=== PATIENT | male | born 1985 | race Caucasian/White ===

== ENCOUNTER → 2019-04-17 | Outpatient (CLI) | payer OTHER, SELFPAY ==
[2019-04-17 09:57] LABS: Absolute Lymphocyte Count 1.38 X10^3/uL (0.83-4.51); Basophil# 0.06 X10^3/uL; Basophil% 1.4 % (0-1); Eosinophil# 0.12 X10^3/uL; Eosinophils% 2.9 % (0-5); Hematocrit 44.2 % (40-54); Hemoglobin 14.6 g/dL (13.0-16.5); Lymphocyte # 1.38 X10^3/ul (4.0); Mean Corpuscular Hgb 30.1 pg (27.0-32.0); Mean Corpuscular Volume 91.1 fL (80-94); Mean Platelet Vol. 11.6 fl (6.2-12.0); Monocyte# 0.62 X10^3/uL; Monocyte% 14.8 % (0-10); NRBC Flagged by Analyzer 0 % (0-5); Neutrophil # 1.99 X10^3/uL (2.7-7.7); Neutrophil % 47.7 % (47-70); Platelet Count 156 K/mm3 (150-450); RBC Distribution Width CV 13.1 % (11.6-14.6); RBC Distribution Width SD 44.7 fl (35.1-43.9); Red Blood Count 4.85 M/mm3 (4.6-6.2); White Blood Count 4.2 K/mm3 (4.4-11.0)
[2019-04-17 10:17] LABS: Vitamin D,25 Hydroxy 42.1 ng/mL (29.95-100.01)
[2019-04-17 10:21] LABS: ALB/GLOB Ratio 1.3 RATIO (0.9-2.4); AST(SGOT) 21 U/L (15-37); Alanine Aminotransfer ALT/SGPT 26 U/L (16-61); Albumin, Serum 4.1 g/dL (3.2-5.0); Alkaline Phosphatase 64 U/L (45-117); Anion Gap 6 (5-15); BUN 17 mg/dL (7-18); BUN/Creat Ratio 15.5 RATIO (10-20); Calcium,Total 8.7 mg/dL (8.5-10.1); Chloride 105 mmol/L (98-107); EST Glomerular Filtration Rate 82 mL/min (>60); Est Glom Filt Rate - Afr Amer 99 mL/min (>60); Globulin 3.1 g/dL (2.2-4.2); Glucose 95 mg/dL (74-106); Potassium 3.9 mmol/L (3.5-5.1); Protein, Total 7.2 g/dL (6.4-8.2); Sodium Level 140 mmol/L (136-145)
== END | disposition home or self-care (01) ==
LOC: MFPLAB 08:22
PROVIDERS: Family Provider Family Medicine; PCP Family Medicine; Referring Provider Family Medicine; Visit Provider Family Medicine
DX: F32.0 Major depressive disorder, single episode, mild (principal); F52.9 Unspecified sexual dysfunction not due to a substance or known physiological condition
CPT/HCPCS: 36415; 80053; 82306; 84403; 84443; 85025

== ENCOUNTER → 2020-05-18 15:17 | Outpatient (CLI) | payer OTHER, SELFPAY | LOC: MFPLAB 15:20 → LABSPEC 15:20 | PROVIDERS: PCP Family Medicine; Referring Provider Family Medicine; Visit Provider Nurse Practitioner Family | DX: R50.9 Fever, unspecified (principal) | CPT/HCPCS: 87633; 87635; U0003 ==

== ENCOUNTER 2020-07-14 09:00 | Outpatient (RCR) | payer OTHER, SELFPAY ==
--- NOTE | 2020-07-01 12:32 | HP.PTEVAL ---
Patient's Visit Information TORITO KWON is a 34 year old M referred to Physical Therapy by Dr. Marc Land MD with a diagnosis of BPV. Date of Evaluation: 07/01/20 Physical Therapist: Marc Ozuna DPT, OCS, CSCS - Visit Plan Frequency: 1x/Week Duration: 2-4 Weeks Plan: weekly x 2-4 for vestibular adaptation progression. VOR - Subjective @nd day back to exercise yesterday and was on TM running 2 miles. Lst night after the first mile got lightheaded and spinning dizzy. slowed down to walking then went down to knees then lied down. Help came and checked vitals. Saw eyes jumping when they sat him up and blood pressure dipped. Room was spinning still after recovering in back and got nauseous. Had some food and slowly got back up , was very pale and clammy but improving. Left via wheelchair and went home and lied down in bed and slowly got better. Feels low level lightheadedness this am, moving head would be worse. Nothing like previously. Sleep well last night. No bad spinning. 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 Will go to work but take is slow. Working out is hobby and wants to get back to that. - Objective Walks and trasnfers normal. Balance is good. Cervical aROM WFL. Vitals good at doctor office this am. - B hallpike bernardino. - roll test. Ocuomotor: nonystagmus with gaze or head shake. - ocular tilt. - skew eye deviation. Normal pursuit adn saccades and convergence. VOR horiz seated give 3/10 dizzy for 20 seconds after 30 seconds of performance. Vertical not as bad. 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 Rehabilitation Potential: Excellent - Anticipated Interventions Patient/Client Instruction: Educate patient on: Condition, Plan of Care For the Purpose of:: To increase tolerance to activity/condition/position Comment: adaptation/habituation. return to activity For the Purpose of:: To increase tolerance to activity/condition/position Thank you for the opportunity to evaluate your patient. For Medicare and Medicare HMO plans, please review the plan of care and approve it. It will need to be FAXED BACK to us at [phone] for Medicare purposes. For Medicare only, by signing this I certify the plan of care. Please let me know if there are questions or concerns regarding this plan of care. Physician Signature: Date:
--- NOTE | 2020-07-14 09:25 | HP.PTREVAL ---
Dr. Marc Land MD, It has been my pleasure to treat TORITO KWON over the last 3 visits for BPV. Please see the progress note below for an update on the physical therapy plan of care! Subjective: Ran and walked yesterday and did ex in between. Still gets dizzy for one second. Seeing improvements with exercises. Nothing else is causing dizzyness. Made it two miles on TM yesterday without an issue. Activities seem pretty normal. No falls. Objective/Function: - positional HD and roll. No MSQ psoitions cause dizzyness. VOR is normal with hrriz and vertical walking. Diagonal gives slight symptoms for 5-8 seconds walking. 10 burpees without a problem. Overall doing well and near back to normal. Feels comfortable continuing HEP and getting back to normal ex regimen slowly on his own vs more therapy. Plan Plan: Pt to call in two weeks for recheck or D/C if doing well. Goals Goal 1:: Abolish dizzyness with VOR Goal Time Frame: 2-4 Weeks Goal Progress: Progressing Goal 2:: Pt feel 100% back to normal with acitviites Goal Time Frame: 2-4 Weeks Goal Progress: 95 Goal 3:: Back to 2 mile jog on TM Goal Time Frame: 2-4 Weeks Goal Progress: Progressing Anticipated Interventions Patient/Client Instruction: Educate patient on: Condition, Plan of Care For the Purpose of:: To increase tolerance to activity/condition/position Comment: adaptation/habituation. return to activity For the Purpose of:: To increase tolerance to activity/condition/position Please do not hesitate to contact me at [phone] by phone or if you have questions or concerns regarding this new plan of care! Sincerely, Marc Ozuna, DPT, OCS, CSCS
--- NOTE | 2020-08-26 15:19 | HP.PT.NRP ---
TORITO KWON was seen in my office for initial evaluation on 07/01/20. The following Plan of Care was established for this patient: Initial Frequency: 1x/Week Initial Duration: 2-4 Weeks Patient/Client Instruction: Educate patient on: Condition, Plan of Care For the Purpose of:: To increase tolerance to activity/condition/position For the Purpose of:: To increase tolerance to activity/condition/position This patient was last seen in our office 07/14/20. Pertinent comments regarding their Physical therapy will appear below: Pt seen 3 visits of POC and was 95% better at last visit. He was to f/u 2 weeks after last session but did not call. I have seen him working out at and he says he is still doing well and does not need to return. I will discontinue at this time. At this point I will be discontinuing this patient from physical therapy. I would be happy to see this patient again in the future if found appropriate by the physician. Thank you! Marc Ozuna, DPT, OCS, CSCS
== END 2020-07-14 19:00 | disposition home or self-care (01) ==
LOC: PT 09:00
PROVIDERS: PCP Family Medicine; Referring Provider Family Medicine; Visit Provider Family Medicine
DX: H81.10 Benign paroxysmal vertigo, unspecified ear (principal)
CPT/HCPCS: 97110; 97162; 97530

== ENCOUNTER → 2022-10-31 | Outpatient (CLI) | payer BC, SELFPAY ==
[2022-10-31 10:30] LABS: ALB/GLOB Ratio 1.2 RATIO (0.9-2.4); AST(SGOT) 23 U/L (15-37); Alanine Aminotransfer ALT/SGPT 37 U/L (16-61); Albumin, Serum 3.9 g/dL (3.2-5.0); Alkaline Phosphatase 68 U/L (45-117); Anion Gap 6 (5-15); BUN 21 mg/dL (7-18); BUN/Creat Ratio 18.8 RATIO (10-20); Calcium,Total 9.1 mg/dL (8.5-10.1); Chloride 105 mmol/L (98-107); Cholesterol 164 mg/dL (200); Creatinine, Serum 1.12 mg/dL (0.70-1.30); EST Glomerular Filtration Rate 78 mL/min (>60); Est Glom Filt Rate - Afr Amer 95 mL/min (>60); Globulin 3.2 g/dL (2.2-4.2); Glucose 93 mg/dL (74-106); High Density Lipoprotein 48 mg/dL; Potassium 4.1 mmol/L (3.5-5.1); Protein, Total 7.1 g/dL (6.4-8.2); Sodium Level 139 mmol/L (136-145); Triglycerides 55 mg/dL; Very Low Density Lipoprotein 11 mg/dL (5-40)
== END | disposition home or self-care (01) ==
PROVIDERS: PCP Family Medicine; Referring Provider Nurse Practitioner Family; Visit Provider Nurse Practitioner Family
DX: Z13.1 Encounter for screening for diabetes mellitus (principal); Z13.220 Encounter for screening for lipoid disorders
CPT/HCPCS: 36415; 80053; 80061

== ENCOUNTER 2025-05-14 12:00 | Outpatient (RCR) | payer OTHER, SELFPAY ==
--- NOTE | 2025-04-14 09:52 | HP.PTEVAL ---
Patient's Visit Information Visit Information Visit Information: TORITO KWON is a 39 year old M referred to Physical Therapy by SUMMER FARRAR with a diagnosis of acute pain of L shoulder. Date of Evaluation: 04/13/25 Physical Therapist: Marc Ozuna, DPT, OCS, CSCS for [facility] Visit Plan Frequency: 2x /Week Duration: 4 Weeks Plan: Postural education for improved shoulder mechanics with pt instructed seated table flexion for ROM with pt able to complete pain free and ice at home to decrease pain/inflammation. Instruction to avoid pushing in to pain with gym activities. AROM as tolerated with shoulder/scapular strengthening. Pt plans to call and schedule with ortho. POC transferred to staff PT after evaluation. Subjective Subjective: Pt is a 39 y.o. male referred to PT from BUCK Farrar at [facility] with complaints of L shoulder pain. Pt presents with complaints of L post scapular pain and pain over AC joint after feeling a pop with wt lifting 03/18/25. States at the time of injury he was completing shoulder abduction with cable diane system. Notes it didn't really phase him initially but noticed increased soreness that week with the muscle under the shoulder blade and tenderness over L AC joint with light touch. Went to [facility] was referred to PT and was given a script for ortho but did not schedule yet. No imaging performed. No medications or exercises issued. Symptoms are aggravated with active forward flexion greater than 90 deg, reaching back behind him with shoulder IR to reach objects in car, lying on L shoulder, and lifting child into a tree. Also notes slight pain with L head rotation. Pain is intermittent ranging 0-5/10, notes his joint feels "gritty". Reports weakness/tightness mainly remain. Denies N/T. Denies hx of c/s issues. Denies prior injury or surgery to L shoulder. Pt is active at baseline lifting wts 3x/wk for many years (cables> machines) and swimming. Wants to learn stretches and exercises for upper body to help maintain his wt lifting and swimming activity (has not swam since injury). No follow up appt scheduled but plans to schedule with ortho. Does not feel his arm is overly restricting activity as he states he modifies tasks to avoid pain or compensates. Pain L shoulder: Pain Intensity (Out of 10): 4 Pain Intensity Range: 0 and 5 Comment: Feels relief with heat. Objective Objective: Posture: foward rounded shoulders with L scapula upward rotation noted Observation: slight edema noted of L AC joint Palpation: Tenderness noted with palpation of subscap bilat, L AC joint. Shoulder AROM: Flexion R 152, L 154 Abduction R 155 L 150 with end range pain Bilat functional IR WFL--pain on L, bilal functional ER WFL L shoulder PROM--WFL--pain free Shoulder strength: flexion R 19.6 #, L 17.3 #. Abd R 23.9#, L 22.2# . ER R 24.9 # L 23.6# (pain), IR R 18.9#, L 20.6 Isometric testing of L shoulder with inconsistent pain noted with resistive IR. (+) pain with horizonal adduction. Special Tests L Shoulder Lift Off Test - Subscapular Tear: Positive L Shoulder Empty Can - SS: Positive L Shoulder Belly Press - SupScap: Negative L Shoulder Dooley Barrett - Impingement: Negative L Shoulder Apprehension Test - Anterior Instability: Negative L Shoulder Apprehension/Relocaton - SLAP: Negative Balance/Special Test Scores Quick DASH Score: 27.2725 Goals Goal 1:: Pt will no longer report sleep disturbances at night due to pain. Goal Time Frame: 2-4 Weeks Goal 2:: Pt will be indep with [facility] for shoulder and scapular strengthening. Goal Time Frame: 2-4 Weeks Goal 3:: Pt will report no greater than 2/10 pain with activity. Goal Time Frame: 2-4 Weeks Goal 4:: Pt will be able to return to swimming tasks without increased symptoms. Goal Time Frame: 2-4 Weeks Goal 5:: Pt will report 80 % overall improvement since starting therapy. Rehabilitation Potential Physical Therapy Diagnosis: L shoulder pain aggravated with arm elevation greater than 90 deg. Presentation suggests AC joint involvement with possible rotator cuff tendinopathy with inconsistent resistive testing noted at eval. Pain is resulting in difficulty for pt to perform active overhead reaching, lifting child into a tree and reaching behind back. Rehabilitation Potential: Good Anticipated Interventions Patient/Client Instruction: Educate patient on: Condition and Plan of Care For the Purpose of:: To decrease pain, To improve muscle performance and motor function, To improve ability of physical actions for home/community/work/leisure and To prevent re-injury Therapeutic Exercise to Include: Strength training, Body mechanics, Postural training, Flexibilty training, Passive ROM, Active ROM and Scapular Strength/Stabilization For the Purpose of:: To decrease pain, To improve muscle performance and motor function, To improve ability of physical actions for home/community/work/leisure and To increase flexibility/ROM Manual Therapy Techniques to Include: Mobilization and Soft tissue mobilization For the Purpose of:: To decrease pain, To increase ROM and To increase flexibility/ROM Cryotherapy (ice pack, ice massage): Yes For the Purpose of:: To decrease pain and To decrease swelling/inflammation Text: Thank you for the opportunity to evaluate your patient. For Medicare and Medicare HMO plans, please review the plan of care and approve it. It will need to be FAXED BACK to us at [phone] for Medicare purposes. For Medicare only, by signing this I certify the plan of care. Please let me know if there are questions or concerns regarding this plan of care. Physician Signature: Date:
--- NOTE | 2025-05-14 12:45 | HP.PTDCSUM ---
Discharge Summary D/C summary: It has been my pleasure to treat TORITO KWON referred by SUMMER PEREZ, with the diagnosis of acute pain of L shoulder for a total of 7 visit(s). Discharge Date: 05/14/25 Please see the following information for a summary of their discharge status. Subjective Subjective: Feeeling good. Sleeping has been apryl slightly noticeable. Not waking him up. Activity: not lifting heavy yet on chest day. Swimming storkes are OK, just limiting volume. Pain L shoulder: Pain Intensity (Out of 10): 0 Overall Improvement % Improvement: 80 Objective Objective/Function: Full aROM without pain today. strength is symmetrical and only slight L discomfort with flexion, abduction on L. Doing well adn seems to understand weaning back adn improtance of ex. Goals Goal 1:: Pt will no longer report sleep disturbances at night due to pain. Goal Progress: Goal Met Goal 2:: Pt will be indep with HEP for shoulder and scapular strengthening. Goal Progress: Goal Met Goal 3:: Pt will report no greater than 2/10 pain with activity. Goal Progress: Progressing, 3 with kids Goal 4:: Pt will be able to return to swimming tasks without increased symptoms. Goal Progress: Goal Met Goal 5:: Pt will report 80 % overall improvement since starting therapy. Goal Progress: Goal Met Plan Plan: d/c to HEP D/C Information d/c sentence: If there are questions or concerns regarding this patient's physical therapy, please feel free to call me at [phone]. Thank you for the referral of this patient. Sincerely, Marc Ozuna, DPT, OCS, CSCS Balance/Gait/Functional tests Balance/Special Test Scores Quick DASH Score: 4.5450 Improvement % Improvement: 80
== END 2025-05-14 14:44 | disposition home or self-care (01) ==
LOC: PT 12:00
PROVIDERS: PCP Family Medicine
DX: M25.512 Pain in left shoulder (principal)
CPT/HCPCS: 97110; 97161; 97164